=== PATIENT | female | born 1990 | race Caucasian/White ===

== ENCOUNTER 2016-10-14 19:10 | Emergency (ER) | payer SELFPAY ==
[~2016-10-14] VITALS: Ht 175.3 cm; Wt 86.0 kg
[~2016-10-14 19:10] MED LIST: LAMO150T32 PO; LAMO25TA PO; LEVOIUD PV; LMC25 PO
[2016-10-14 19:12] VITALS: TEMP 37.2; Ht 175.3 cm; Wt 86.0 kg
[2016-10-14] MEDS ORDERED: SODIUM CHLORIDE 0.9% 1000ML 1,000 ML IV STA (19:28)
[2016-10-14 20:18] LABS: BASO % 0.2 %; BASO ABS # 0.01 K/uL (0-0.2); COMPLETE YES; EOS % 0.2 %; HEMATOCRIT 43.4 % (37-47); IG% 0.2 %; LYMPH % 18.3 %; LYMPH ABS # 0.94 K/uL (1.2-3.4); MEAN CELL VOLUME 91.8 fL (80-100); MEAN CORPUSCULAR HEMOGLOBIN 31.9 pg (25-34); MEAN CORPUSCULAR HGB CONC 34.8 g/dl (32-36); MEAN PLATELET VOLUME 11.2 fL (7.4-10.4); MONO % 11.5 %; NEUT % 69.6 %; PLATELET COUNT 195 K/uL (130-400); RED BLOOD COUNT 4.73 M/uL (4.2-5.4); WHITE BLOOD COUNT 5.13 K/uL (4.8-10.8)
[2016-10-14 20:40] LABS: BUN/CREATININE RATIO 9.9 (10-20); CALCIUM 8.7 mg/dl (8.5-10.1); CREATININE 0.87 mg/dl (0.60-1.20); POTASSIUM 3.8 mmol/L (3.5-5.1)
--- NOTE | 2016-10-14 20:44 | DIAGNOSTIC IMAGING REPORT ---
CHEST 2 VIEWS ROUTINE CLINICAL HISTORY: Cough. Evaluate for pneumonia. COMPARISON STUDY: Chest radiograph January 24, 2015. FINDINGS: Lung volumes are normal. Lungs are clear. There is no pneumothorax or pleural effusion. Cardiac size is normal. Mediastinal contours are normal. IMPRESSION: No acute cardiopulmonary findings. Electronically signed by: Goran Ji M.D. 10/14/2016 8:43 PM Dictated Date/Time: 10/14/2016 8:42 PM
[2016-10-14 21:19] VITALS: BP 120/86; PULSE 69; O2SAT 99
--- NOTE | 2016-10-14 23:01 | EMERGENCY ROOM VISIT NOTE ---
History Report prepared by Taylaibmadi: Rosie Go Under the Supervision of: Dr. Jorge Palomo M.D. First contact with patient: 19:22 Chief Complaint: COUGH Stated Complaint: COUGH,SORE THROAT,TROUBLE BREATHING,SNEEZING History of Present Illness The patient is a 26 year old female who presents to the Emergency Room with complaints of a worsening cough for the past 4 to 5 days. She reports her throat has also been sore and every time she coughs, she experiences soreness in her chest and becomes "lightheaded". She also complains of the chills. She is not sure if she's been running a fever. The patient admits to having a coworker who was recently diagnosed with strep throat. She denies any chance of being and states her last menstrual period was on time and normal. She admits to some nausea yesterday, but denies any actual vomiting. She has tried taking DayQuil, but reports it has not provided much relief. The patient denies any past history of mononucleosis. She admits to history of epilepsy but denies any recent seizures. Source of History: patient Onset: 4 to 5 days [employer] RE[employer] Position: chest Quality: other (Cold symptoms) Timing: worsening Modifying Factors (Relieving): other (DayQuil) Associated Symptoms: + chills, + cough, + nausea, + sorethroat, No SOB, No fevers, No vomiting Review of Systems See HPI for pertinent positives & negatives. A total of 10 systems reviewed and were otherwise negative. Past Medical & Surgical Medical Problems: (1) Epilepsy Social History Smoking Status: Never Smoker Drug Use: none Marital Status: in relationship Housing Status: lives with family Occupation Status: employed Current/Historical Medications Scheduled Lamotrigine (Lamictal), 150 MG PO AMHS Lamotrigine (Lamictal), 25 MG PO QPM Levonorgestrel (Iud) (Mirena), 1 PV UD Allergies Coded Allergies: Diphenhydramine (Verified Allergy, Severe, rash with trouble breathing, 06/20) Physical Exam Vital Signs Date Time Temp Pulse Resp B/P Pulse Ox O2 Delivery O2 Flow Rate FiO2 10/14/16 21:19 69 18 120/86 99 10/14/16 19:12 37.2 82 18 156/97 96 Room Air Physical Exam Constitutional: Vital signs reviewed. Eyes: Pupils are equal round reactive to light. Conjunctiva are noninjected. ENT: Mild erythema in the oropharynx, no exudate. Mucous membranes are moist. Neck supple without meningeal signs. Respiratory: Clear to auscultation bilaterally. Breath sounds are equal bilaterally. Cardiovascular: Regular rate and rhythm. No rubs or gallops. GI: Soft, nondistended and nontender. Bowel sounds are present. No organomegaly. Musculoskeletal: No peripheral edema. No lower extremity tenderness. Integumentary: No cyanosis. Neurological: The patient is awake and alert. No focal deficits. Psychiatric: Normal affect. Medical Decision & Procedures ER Provider Diagnostic Interpretation: This X-Ray was reviewed and interpreted by myself and the radiologist. CHEST 2 VIEWS ROUTINE CLINICAL HISTORY: Cough. Evaluate for pneumonia. COMPARISON STUDY: Chest radiograph January 24, 2015. FINDINGS: Lung volumes are normal. Lungs are clear. There is no pneumothorax or pleural effusion. Cardiac size is normal. Mediastinal contours are normal. IMPRESSION: No acute cardiopulmonary findings. Electronically signed by: Goran Ji M.D. 10/14/2016 8:43 PM Laboratory Results 10/14/16 20:06 Red Blood Count 4.73, Mean Corpuscular Volume 91.8, Mean Corpuscular Hemoglobin 31.9, Mean Corpuscular Hemoglobin Concent 34.8, Mean Platelet Volume 11.2, Neutrophils (%) (Auto) 69.6, Lymphocytes (%) (Auto) 18.3, Monocytes (%) (Auto) 11.5, Eosinophils (%) (Auto) 0.2, Basophils (%) (Auto) 0.2, Neutrophils # (Auto ) 3.57, Lymphocytes # (Auto) 0.94, Monocytes # (Auto) 0.59, Eosinophils # (Auto ) 0.01, Basophils # (Auto) 0.01 10/14/16 20:06 Test 10/14/16 00:00 10/14/16 20:06 Influenza Type A Antigen POS for Influ A (NEG) Influenza Type B Antigen Neg for Influ B (NEG) White Blood Count 5.13 K/uL (4.8-10.8) Red Blood Count 4.73 M/uL (4.2-5.4) Hemoglobin 15.1 g/dL (12.0-16.0) Hematocrit 43.4 % (37-47) Mean Corpuscular Volume 91.8 fL (80-100) Mean Corpuscular Hemoglobin 31.9 pg (25-34) Mean Corpuscular Hemoglobin Concent 34.8 g/dl (32-36) Platelet Count 195 K/uL (130-400) Mean Platelet Volume 11.2 fL (7.4-10.4) Neutrophils (%) (Auto) 69.6 % Lymphocytes (%) (Auto) 18.3 % Monocytes (%) (Auto) 11.5 % Eosinophils (%) (Auto) 0.2 % Basophils (%) (Auto) 0.2 % Neutrophils # (Auto) 3.57 K/uL (1.4-6.5) Lymphocytes # (Auto) 0.94 K/uL (1.2-3.4) Monocytes # (Auto) 0.59 K/uL (0.11-0.59) Eosinophils # (Auto) 0.01 K/uL (0-0.5) Basophils # (Auto) 0.01 K/uL (0-0.2) RDW Standard Deviation 42.6 fL (36.4-46.3) RDW Coefficient of Variation 12.7 % (11.5-14.5) Immature Granulocyte % (Auto) 0.2 % Immature Granulocyte # (Auto) 0.01 K/uL (0.00-0.02) Anion Gap 12.0 mmol/L (3-11) Est Creatinine Clear Calc Drug Dose 114.7 ml/min Estimated GFR () 106.6 Estimated GFR (Non- 91.9 BUN/Creatinine Ratio 9.9 (10-20) Calcium Level 8.7 mg/dl (8.5-10.1) Total Bilirubin 0.4 mg/dl (0.2-1) Direct Bilirubin 0.2 mg/dl (0-0.2) Aspartate Amino Transf (AST/SGOT) 52 U/L (15-37) Alanine Aminotransferase (ALT/SGPT) 70 U/L (12-78) Alkaline Phosphatase 57 U/L (45-117) Total Protein 7.2 gm/dl (6.4-8.2) Albumin 4.1 gm/dl (3.4-5.0) Monoscreen NEG (NEG) Laboratory results as reviewed by me. Medications Administered Medications (Trade) Dose Ordered Sig/Tasha Route Start Time Stop Time Status Last Admin Dose Admin Sodium Chloride (Nss 1000ml) 1,000 ml @ 999 mls/hr Q1H1M STAT IV 10/14/16 19:28 10/14/16 20:28 DC 10/14/16 20:09 999 MLS/HR ED Course 1922: The patient was evaluated in room C11. A complete history and physical exam was performed. 1927: NSS 1000 ml @ 999 mls/hr IV. 2049: I reevaluated the patient. I discussed her test results. We are waiting on her flu swab to come back. 2106: Nursing informed me the patient is positive for flu. 2108: I reevaluated the patient. I discussed her test results and discharge instructions and she verbalized complete understanding and agreement. Medical Decision This is a 26-year-old female presents with a 4 to five-day history of illness. Differential diagnosis includes influenza, infectious mononucleosis, strep pharyngitis, viral syndrome, pneumonia, bronchitis. I did perform a limited focused review of portions of the patient's old chart on the electronic medical record. The patient has had no recent pertinent visits to this hospital. I did evaluate the patient as noted above. The patient is presenting with a 4- 5 day history of flulike illness. IV access was established. She was given a liter normal saline IV. She declined testing for . I did order and personally review the patient's chest x-ray as described above. There is no evidence of pneumonia. I did order and review the patient's blood work as noted in the electronic medical record. Her white blood cell count is not elevated. Her Monospot is negative. Rapid testing for influenza was positive for influenza A. I did stress the test results with the patient. She has had symptoms for 2 long to benefit from Tamiflu. She was therefore advised follow with her doctor and given a work note. She was discharged. Impression Primary Impression: Influenza A Scribe Attestation The scribe's documentation has been prepared under my direct and personally reviewed by me in its entirety. I confirm that the note above accurately reflects all work, treatment, procedures, and medical decision making performed by me. Departure Information Dispostion Home / Self-Care Patient Instructions ED Flu, My [facility] Additional Instructions You have been examined and treated today on an emergency basis only. This is not a substitute for, or an effort to provide, complete comprehensive medical care. It is impossible to recognize and treat all injuries or illnesses in a single emergency department visit. It is therefore important that you follow up closely with your physician. Call as soon as possible for an appointment. Return for worsening symptoms or if you develop vomiting or any other concerning symptoms.
== END 2016-10-14 21:21 | disposition home or self-care (01) ==
LOC: C.EDB 19:11 → C.EDC 21:21
DX: J11.1 Influenza due to unidentified influenza virus with other respiratory manifestations (principal); G40.909 Epilepsy, unspecified, not intractable, without status epilepticus; Z79.899 Other long term (current) drug therapy

== ENCOUNTER 2017-06-18 16:20 | Emergency (ER) | payer SELFPAY ==
[~2017-06-18] VITALS: Ht 175.3 cm; Wt 90.3 kg
[~2017-06-18 16:20] MED LIST changes: -LMC25 PO
[2017-06-18 16:49] VITALS: TEMP 36.7; Ht 175.3 cm; Wt 90.3 kg
[2017-06-18] MEDS ORDERED: LAMO25TA PO (17:26)
[2017-06-18] MEDS ORDERED: KETOROLAC TROMETHAMINE 60 MG/2 ML VIAL IM STA (17:32)
--- NOTE | 2017-06-18 18:19 | DIAGNOSTIC IMAGING REPORT ---
SACRUM COCCYX MIN 2 VIEWS CLINICAL HISTORY: Contusion right sacrum from trauma. COMPARISON STUDY: Lumbar spine radiographs January 28, 2015. FINDINGS: No fracture of the sacrum or coccyx is identified by radiography. Sacroiliac joints are intact. Intrauterine device is noted. 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 IMPRESSION: No fracture of the sacrum or coccyx identified radiography. Electronically signed by: Goran Ji M.D. 06/18/2017 6:18 PM Dictated Date/Time: 06/18/2017 6:16 PM
[2017-06-18 18:41] VITALS: BP 113/70; PULSE 69; O2SAT 100
--- NOTE | 2017-06-18 18:57 | EMERGENCY ROOM VISIT NOTE ---
ED Visit Note First contact with patient: 17:22 CHIEF COMPLAINT: Low back pain HISTORY OF PRESENT ILLNESS: This 26-year-old female patient presents to the emergency department, ambulatory, complaining of pain in the low back which began 2 days ago. The patient states she was attempting to grab a mop and broom out of a closet, when the very heavy door hit her backside. The patient states when she was an , she had a spinal tap performed and continues to have occasional discomfort on the lower right side where this procedure was done. The patient states today she noticed some bruising, and is having increased pain with lying flat or on her left side. She describes the pain as shooting and pinching, but denies any numbness or tingling. She states the pain does occasionally radiate down the right leg. She denies any abnormal bowel or bladder symptoms. She denies any previous back pain or injury. The patient has been taking 400 mg ibuprofen every 4-6 hours. She states the pain is worse with lifting and moving. She rates the pain 7/10. No nausea or vomiting or abdominal pain. No chest pain or shortness of breath. No dysuria or increased urinary frequency. REVIEW OF SYSTEMS: A review of systems was performed with positives and pertinent negatives listed in the history of present illness. All other systems were reviewed and are negative. ALLERGIES: Benadryl MEDICATIONS: Lamictal, Mirena IUD PMH: Seizures SOCIAL HISTORY: The patient lives locally with family. She denies drug, alcohol , tobacco use. PHYSICAL EXAM: VITALS: Vitals are noted on the nurse's note and reviewed by myself. Vital signs stable. GENERAL: This is a 26-year-old female, in no acute distress, nondiaphoretic, well-developed well-nourished. SKIN: The skin was without rashes, erythema, edema, or bruising. Capillary refill less than 2 seconds. NECK: Supple without nuchal rigidity. No cervical spine tenderness. No paraspinous muscle tenderness. HEART: Regular rate and rhythm without murmurs gallops or rubs. LUNGS: Clear to auscultation bilaterally without wheezes, rales or rhonchi. ABDOMEN: Positive bowel sounds x 4. Normal tympanic percussion. Soft, nontender, without masses or organomegaly. Chang sign negative. MUSCULOSKELETAL: No muscle atrophy, erythema, or edema noted of the back. There is a very small, approximately 0.5 cm bruise noted on the right lower back , overlying the sacrum. There is discomfort associated with palpation over this contusion. There is no tenderness over the lumbar spinous processes. There is mild tenderness over the paraspinous muscles on the right. There is no tenderness over the thoracic spine or paraspinous muscles. There are no muscle spasms present. The patient is slow to move around with maximum tenderness with changing positions. Negative straight leg raise test. NEURO: Patient was alert and oriented to person place and time. Normal sensation to light and sharp touch. Deep tendon reflexes 2+ in the lower extremities. Dorsalis pedis pulse 2+ bilaterally. Strength 5/5 and equal in the bilateral lower extremities. RADIOLOGY: Sacrum X-Ray: SACRUM COCCYX MIN 2 VIEWS CLINICAL HISTORY: Contusion right sacrum from trauma. COMPARISON STUDY: Lumbar spine radiographs January 28, 2015. FINDINGS: No fracture of the sacrum or coccyx is identified by radiography. Sacroiliac joints are intact. Intrauterine device is noted. 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 IMPRESSION: No fracture of the sacrum or coccyx identified radiography. Electronically signed by: Goran Ji M.D. 06/18/2017 6:18 PM Dictated Date/Time: 06/18/2017 6:16 PM EMERGENCY DEPARTMENT COURSE: Patient was seen and evaluated as above. I discussed with her that I suspect a contusion as the cause of her symptoms. The patient states she feels uncomfortable without having any imaging performed due to her previous spinal tap which was performed as an . The patient states she is in a lot of pain, and does not know what to do about the pain if there is nothing wrong associated with the spinal tap. A sacrum x-ray was ordered and performed at the patient's request. This did not show any significant bony abnormalities. This was reviewed by myself and the radiologist. The patient was given 60 mg Toradol IM. Her port mild improvement in her symptoms. The patient requested a work note due to her severe discomfort. Discharge instructions were reviewed and pain management discussed. The patient was discharged home in good condition. I attest that I have personally reviewed the patient's current medication list. Patient was found to have normal blood pressure on screening and does not require follow-up. DIFFERENTIAL DIAGNOSIS: Contusion, fracture, sprain, strain, degenerative disc disease, arthritis, disc protrusion, disc herniation, hemorrhage, malignancy, and others DIAGNOSIS: Lumbar contusion Current/Historical Medications Scheduled Lamotrigine (Lamictal), 150 MG PO AMHS Lamotrigine (Lamictal), 25 MG PO QAM Lamotrigine (Lamictal), 50 MG PO QPM Levonorgestrel (Iud) (Mirena), 1 PV UD Allergies Coded Allergies: Diphenhydramine (Verified Allergy, Severe, rash with trouble breathing, 06/20) Vital Signs Date Time Temp Pulse Resp B/P (MAP) Pulse Ox O2 Delivery O2 Flow Rate FiO2 06/18/17 18:41 69 20 113/70 100 Room Air 06/18/17 16:49 36.7 74 20 135/82 100 Room Air Medications Administered Medications (Trade) Dose Ordered Sig/Tasha Route Start Time Stop Time Status Last Admin Dose Admin Ketorolac Tromethamine (Toradol Inj) 60 mg NOW STAT IM 06/18/17 17:32 06/18/17 17:33 DC 06/18/17 17:37 60 MG Departure Information Impression Primary Impression: Back contusion Dispostion Home / Self-Care Condition GOOD Referrals No Doctor, Assigned (PCP) Patient Instructions ED Contusion Back, My [facility] Additional Instructions You have been treated in the Emergency Department for Back Pain. X-ray was negative and I suspect a contusion. For pain control, you can use the following [id number] medicines (if >12 yo): Ibuprofen(Motrin, Advil) may be used for fever or pain. Use 600mg every six hours as needed. Take with food. Avoid using more than 2400mg in a 24 hour period. Do not use 2400mg per day for more than three consecutive days without physician direction. Prolonged inappropriate use can lead to stomach upset or ulcers. (AND/OR) Acetaminophen(Tylenol) may be used for fever or pain. Use 1000mg every six hours as needed. Avoid using more than 3000mg in a 24 hour period. If this is an acute injury, ice can be applied to the area of pain for the first 3 days to help decrease pain and inflammation. After the first 3 days, a heating pad can be used over the area for continued soothing relief. You should schedule a follow-up appointment in 2-3 days with your Primary Care Provider for further evaluation and treatment of your back pain. Return to the Emergency Department if your current symptoms worsen despite treatment course outlined above, or if you develop any of the following symptoms : intractable pain despite aforementioned treatment course, loss of control of your bowel or bladder, numbness or tingling in your groin, or development of a fever. Work Instructions Return To Work: 1 day Problem Qualifiers Primary Impression: Back contusion Encounter type: initial encounter Laterality: right Qualified Codes: S20.221A - Contusion of right back wall of thorax, initial encounter
== END 2017-06-18 19:06 | disposition home or self-care (01) ==
LOC: C.EDB 16:20 → C.EDD 19:06
DX: S30.0XXA Contusion of lower back and pelvis, initial encounter (principal); W22.8XXA Striking against or struck by other objects, initial encounter; G40.909 Epilepsy, unspecified, not intractable, without status epilepticus; Z79.899 Other long term (current) drug therapy

== ENCOUNTER 2018-04-27 00:39 | Emergency (ER) | payer SELFPAY ==
[~2018-04-27] VITALS: Ht 175.3 cm; Wt 107.0 kg
[~2018-04-27 00:39] MED LIST changes: +LAMO150T PO; -LAMO150T32 PO; +LEVO1IUD2 PV; -LEVOIUD PV
[2018-04-27 00:50] VITALS: Ht 175.3 cm; Wt 107.0 kg
[2018-04-27] MEDS ORDERED: CLOTRIMAZOLE 1% CR 15 GM TUBE EXT ONE (01:15)
[2018-04-27 01:28] VITALS: BP 145/92; PULSE 75; TEMP 37.1; O2SAT 99
--- NOTE | 2018-04-27 07:08 | EMERGENCY ROOM VISIT NOTE ---
History First contact with patient: 00:57 Chief Complaint: SKIN PROBLEM Stated Complaint: INFECTION ON UPPER LEGS(BOTH) History of Present Illness The patient is a 27 year old female who presents to the Emergency Room with complaints of irritation and rash to her thighs that has been worsening over the past 2 weeks. The patient works as a nurse's aide and walking seems to worsen the symptoms. She is not sure if she has an infection, but the rash appears to be worsening over the past few days, causing her presentation. She has not had fever or chills. She does not have other complaints. The pain is primarily a burning, nonradiating, 6/10. Review of Systems More than 10 systems were reviewed and otherwise negative with the exception of history of present illness. Past Medical/Surgical History Medical Problems: (1) Epilepsy Family History No pertinent family history Social History Smoking Status: Never Smoker Drug Use: none Marital Status: in relationship Housing Status: lives with family Occupation Status: employed Current/Historical Medications Scheduled Lamotrigine (Lamictal), 150 MG PO AMHS Lamotrigine (Lamictal), 25 MG PO QAM Lamotrigine (Lamictal), 50 MG PO QPM Levonorgestrel (Iud) (Mirena), 1 PV UD Physical Exam Vital Signs Date Time Temp Pulse Resp B/P (MAP) Pulse Ox O2 Delivery O2 Flow Rate FiO2 04/27/18 01:28 37.1 75 18 145/92 99 04/27/18 00:50 37.1 75 18 145/92 99 Room Air Physical Exam VITALS: Vitals are noted on the nurse's note and reviewed by myself. Vital signs stable. GENERAL: Well-developed, well-nourished, white female, who is in no acute distress and resting comfortably. Patient is cooperative with the examination. HEART: Regular rate and rhythm without murmurs gallops or rubs. LUNGS: Clear to auscultation bilaterally without wheezes, rales or rhonchi. No retractions or accessory muscle use. NEURO: Patient was alert and oriented to person place and time. CN II through XII grossly intact. SKIN: The skin was with a rash of the bilateral inguinal space. This appears with a reddened plaque-like base with white overlying tissue. This appears to be most consistent with a fungal/yeast infection Medical Decision & Procedures Medications Administered Medications (Trade) Dose Ordered Sig/Tasha Route Start Time Stop Time Status Last Admin Dose Admin Clotrimazole (Lotrimin 1% Crm) 1 appln NOW ONCE EXT 04/27/18 01:15 04/27/18 01:16 DC 04/27/18 01:26 1 APPLN ED Course Physical exam and history were performed. Nursing notes, EMR, and Medication List were personally reviewed. Patient appears to have rash in her bilateral inguinal space. This appears to be most consistent with a yeast or fungal infection. She was given Lotrimin ointment. The patient is to continue using this at home. She may also wish to use a topical protective cream like Desitin. I will give her a note for work. Other skin care was discussed and she was otherwise invited back to the ER with any new, worsening, or concerning symptoms. The chart was completed utilizing [employer] Speech Voice Recognition Software. Grammatical errors, random word insertions, pronoun errors, and incomplete sentences are an occasional consequence of this system due to software limitations, ambient noise, and hardware issues. Any formal questions or concerns about the content, text, or information contained within the body of this dictation should be directly addressed to the provider for clarification. . Medical Decision Differential diagnosis: Etiologies such as contact dermatitis, viral exanthem, urticaria, allergic reaction, Benson-Rigo syndrome, toxic epidermal necrolysis, erythema multiforme, cellulitis, scabies, HSV, varicella, zoster, eczema, staph scalded skin syndrome, fungal infection, as well as others were entertained. Impression Primary Impression: Rash and nonspecific skin eruption Departure Information Dispostion Home / Self-Care Condition GOOD Forms HOME CARE DOCUMENTATION FORM, Work Instructions, Additional Instructions: Patient was seen and evaluated today in the emergency department fo medical care. Return to work on 04/30/2018. Please excuse. IMPORTANT VISIT INFORMATION Patient Instructions My [facility] Additional Instructions You were seen and evaluated today on an emergency basis only. This is not a substitute for, or an effort to provide, complete comprehensive medical care. It is not possible to recognize and treat all injuries or illnesses in a single emergency department visit. For this reason it is recommended that you followup with your primary care physician next week for ongoing care and evaluation. Apply Lotrimin (clotrimazole) ointment 3-4 times daily to the affected area. Afterwards apply Desitin (or similar product) overtop of the Lotrimin. Both of these medications are available [id number]. Keep the area uncovered as much as possible. You are welcome to return to the emergency department anytime with new, worsening, or concerning symptoms. Work Instructions Additional Work Instructions: Patient was seen and evaluated today in the emergency department for medical care. Return to work on 04/30/2018. Please excuse.
== END 2018-04-27 01:30 | disposition home or self-care (01) ==
LOC: C.EDB 00:40 → C.EDC 01:30
DX: R21 Rash and other nonspecific skin eruption (principal); G40.909 Epilepsy, unspecified, not intractable, without status epilepticus; Z79.899 Other long term (current) drug therapy

== ENCOUNTER 2024-03-18 17:27 | Observation (INO) ==
--- NOTE | 2024-03-18 17:38 | ED Triage Note ---
Date of Service March 18, 2024 Provider in Triage Author: Joy Nick History of Present Illness This patient was briefly evaluated while in triage. An abbreviated physical exam was performed. This patient is a 33-year-old Female who presents to the ED for evaluation of dental swelling. Pt states seen here yesterday for similar symptoms. Since yesterday, pain and swelling is worsening. Physical Exam Initial orders for labs and / or imaging were placed and patient was placed in the waiting area until a bed is available. Please see further documentation for the full ED course.
--- NOTE | 2024-03-18 17:46 | Emergency Department Note ---
Impression & Plan Facial cellulitis, Dental infection ED Provider Note CHIEF COMPLAINT: Dental infection HISTORY OF PRESENTING ILLNESS: This 33-year-old female patient presents to the emergency department with her for evaluation of swelling and pain to the right lower teeth and face. The patient was seen in the emergency department yesterday and diagnosed with a dental infection. She was started on Augmentin. However, the swelling to her face has gotten a lot worse despite the Augmentin. No fevers. No discharge from her mouth. She did not get a hold of a dentist yet because she slept most of the day from the pain. She is still able to open the mouth, but with increased pain. No trouble breathing or swallowing. She has a Mirena so she does not get her periods. She does not feel that she could be . REVIEW OF SYSTEMS: See HPI for pertinent positives and pertinent negatives. ALLERGIES: Benadryl MEDICATIONS: Lamictal, Mirena PAST MEDICAL HISTORY: Epilepsy, Migraines PHYSICAL EXAM: Vital Signs: Vitals are noted on the nurse's note and reviewed by myself. GENERAL: Non toxic in appearance and in no acute distress. SKIN: The patient has significant edema to the right side of the face mainly around the mandible and maxillary area. No erythema or warmth. There is induration, but no fluctuance. Capillary reflex less than 2 seconds. HEAD: Normocephalic, atraumatic. EARS: Bilateral external auditory canals clear without tragus tenderness. Bilateral tympanic membranes pearly cueto without erythema or effusion. No mastoid tenderness bilaterally. EYES: Pupils equal round and reactive to light and accommodation. Conjunctivae without injection, sclerae without icterus. Extraocular movements intact. NOSE: Patent, turbinates inflamed with no discharge. No sinus tenderness. MOUTH: The patient has multiple dental caries present with significant edema and inflammation of the gingiva surrounding the right lower molars. However, no obvious drainable abscess at this time. No discharge from the mouth. Mucous membranes moist. Airway patent, uvula midline. Pharynx is not erythematous and not edematous without exudate. Pharynx without postnasal drip. No evidence for peritonsillar abscess. NECK: Supple without nuchal rigidity. Positive right-sided anterior and posterior cervical lymphadenopathy. No evidence for Lauro angina at this time. HEART: Regular rate and rhythm without murmurs gallops or rubs. LUNGS: Clear to auscultation bilaterally without wheezes, rales or rhonchi. No accessory muscle use or retractions. ABDOMEN: Positive bowel sounds x 4. Normal tympanic percussion. Soft, nontender, without masses or organomegaly. NEURO: Patient was alert and oriented. DIFFERENTIAL DIAGNOSIS: Differential diagnosis includes dental caries, periapical abscess, facial cellulitis, facial abscess, Lauro's angina, pharyngitis, referred pain, among others. ED COURSE AND MEDICAL DECISION MAKING: MEDICATIONS GIVEN: 1 L normal saline solution bolus. Toradol 15 mg IV. Unasyn 3 g IV. INTERPRETATION OF LABS: I interpreted the labs with full lab results as below in the lab section of this note. White blood cell count elevated 11.76. Hemoglobin normal at 13.3. Platelet count normal at 289. Glucose 133. Sodium and potassium hemolyzed and were not resulted. The remainder of the BMP without acute abnormalities. INTERPRETATION OF IMAGING: Imaging studies were interpreted by myself and read by radiology as per the imaging section of this note. CT scan of the soft tissue neck with IV contrast showed prominent right mandibular soft tissue swelling and fat stranding, but no discrete abscess identified. There is a small amount of fluid along the right platysma. Dental disease is present. EXTERNAL RECORDS REVIEWED: I reviewed the ER record from yesterday as summarized above. CONSULTATIONS: Dr. Mcclain of maxillofacial surgery MDM SUMMARY: I examined the patient. The patient was seen in the ER yesterday for a dental infection. She was given a prescription for Augmentin and has been taking it as prescribed. However, today she noticed increased swelling to the right side of her face. She has not had any fevers or discharge from her mouth. An IV lock was placed and labs were drawn. White blood cell count mildly elevated at 11.76. CT scan of the soft tissue neck with IV contrast showed prominent right mandibular soft tissue swelling and fat stranding, but no discrete abscess identified. There is a small amount of fluid along the right platysma. Dental disease is present. The patient was given 1 L normal saline solution bolus, Toradol 15 mg IV, and Unasyn 3 g IV. The patient has been taking her Augmentin as prescribed yesterday with increased swelling to the right side of the face. I spoke with Dr. Mcclain of maxillofacial surgery who reviewed the patient's CT scan images himself. Dr. Mcclain stated that based on the images, he could not proceed with treatment in the office and the patient would likely need surgical intervention in the OR/under anesthesia after the infection started to improve. Dr. Mcclain recommended the patient be admitted for IV antibiotics to help decrease the swelling and infection prior to the likely surgical intervention. I made the patient n.p.o. and discussed these recommendations with the patient. The patient was agreeable to admission. I spoke with the on-call hospitalist who agreed to admit the patient for further evaluation and treatment with Dr. Mcclain on consult. Please refer to their dictations for further details. The patient's care was transferred in stable condition. DIAGNOSIS: Dental disease most prominent in the right first mandibular molar and right first maxillary molar Right-sided facial cellulitis secondary to the dental infection Past Med/Surg History Problem List (Updated 03/17/24 @ 19:15 by GEORGE Keen) Dental abscess (Acute) Chronic low back pain Insomnia Annual physical exam Epilepsy Medical History Migraines Back pain Surgical History History of loop electrosurgical excision procedure (LEEP) Uncertain Timing H/O wisdom tooth extraction Family History Grandfather (Maternal) Myocardial infarction Mother Hypertension Daughter Diabetes Sister Diabetes Denies family history of Ovarian cancer Prostate cancer Breast cancer Colorectal cancer Social History Smoking Status: Never smoker Second Hand Exposure: No; Do You Dip or Chew Tobacco: No; Hx Alcohol Use: Yes Alcohol type: wine Alcohol Intake Frequency: Monthly or Less Hx Substance Use: No Preferred Language: Estonian Communication Ability: Effective Visual Impairment: No Limitations Hearing Ability: Normal marital status: Current Living Situation: Spouse current occupational status: employed 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 Children do You have: 2 Feels Safe at Home: Yes Childhood Exposure to Second-Hand Smoke: No caffeine: Yes Dental Care, Regularly: Yes Physical Activity Frequency: 3-4 Times per Week Seatbelt Use: always Sunscreen Use: Yes Allergies Allergies Allergy/AdvReac Type Severity Reaction Status Date / Time diphenhydramine Allergy Severe rash with Verified 03/18/24 20:41 trouble breathing Home Meds Home Medications Medication Instructions Recorded Confirmed levonorgestrel 21 mcg/24 hr (up to 20 mcg intrauterine DAILY 07/23/19 03/18/24 8 years) 52 mg intrauterine device (Mirena) buprenorphine 8 mg-naloxone 2 mg 2 tab sublingual DAILY 06/26/20 03/18/24 sublingual tablet doxepin 50 mg capsule 50 mg PO HS 03/18/24 03/18/24 gabapentin 400 mg capsule 400 mg PO HS 03/18/24 03/18/24 ibuprofen 200 mg tablet 200 mg PO Q6H PRN pain/fever 03/18/24 03/18/24 lamotrigine 150 mg tablet See Rx Instructions .Route .COMPLEX 03/18/24 03/18/24 (Lamictal) lamotrigine 25 mg tablet See Rx Instructions .Route .COMPLEX 03/18/24 03/18/24 Previous Rx's Medication Instructions Recorded amoxicillin 875 mg-potassium 1 tab PO BID 7 days #14 tabs 03/17/24 clavulanate 125 mg tablet Results & Data (ED) Vital Signs Vital Signs - 24 hr 03/18/24 17:36 03/18/24 19:23 03/18/24 20:05 Temperature 36.6 C Temperature Source Temporal Artery Scan Pulse Rate 85 Pulse Rate [Finger] 72 75 Respiratory Rate 18 18 18 Respiratory Effort / Characteristics Non-Labored Spontaneous Non-Labored Spontaneous Non-Labored Spontaneous Respiratory Depth Normal Normal Normal Respiratory Pattern Regular Blood Pressure 139/79 Blood Pressure [Right Arm] 121/75 108/76 Blood Pressure Mean 99 Blood Pressure Mean [Right Arm] 90 86 Pulse Oximetry 92 95 97 Oxygen Delivery Method Room Air Room Air Room Air Sepsis Recent Fever Within 48 Hours No Sepsis New/Unexplained Change in Mental Status N/A Sepsis Action Taken by Nursing No Action Required Laboratory Data 03/18/24 18:15 03/18/24 18:15 Lab Results 03/18/24 Range/Units 18:15 WBC 11.76 H (4.8-10.8) K/ul RBC 4.29 (4.20-5.40) M/uL Hgb 13.3 (12.0-16.0) g/dl Hct 40.5 (37.0-47.0) % MCV 94.4 (80.0-100.0) fL MCH 31.0 (25.0-34.0) pg MCHC 32.8 (32.0-36.0) g/dL RDW Std Deviation 45.0 (36.4-46.3) fL RDW Coeff of Sherman 13.0 (11.5-14.5) % Plt Count 289 (130-400) K/uL MPV 10.9 (9.4-12.4) fL Immature Gran % (Auto) 0.3 % Neut % (Auto) 75.5 % Lymph % (Auto) 17.4 % [place] % (Auto) 6.0 % Eos % (Auto) 0.5 % Baso % (Auto) 0.3 % Neut # (Auto) 8.87 H (1.40-6.50) K/uL Lymph # (Auto) 2.05 (1.20-3.40) K/uL [place] # (Auto) 0.71 H (0.11-0.59) K/uL Eos # (Auto) 0.06 (0.00-0.50) K/uL Baso # (Auto) 0.04 (0.00-0.20) K/uL Immature Gran # (Auto) 0.03 (0.01-0.20) K/uL Sodium TNP Potassium TNP Chloride 104 (98-107) mmol/L Carbon Dioxide 26 (21-32) mmol/L Anion Gap TNP BUN 12 (6-23) mg/dl Creatinine 0.85 (0.6-1.2) mg/dl Est Cr Clr Drug Dosing 126.4 ml/min Est GFR ( Amer) 104.3 ml/min Est GFR (Non-Af Amer) 90.0 ml/min BUN/Creatinine Ratio 14.1 (10-20) Glucose 133 H (70-99(Fasting)) mg/dl Calcium 9.0 (8.6-10.3) mg/dl HCG, Qual Negative (Negative) Administered Medications Lactated Ringer's (Lr) 1,000 mls @ 80 mls/hr IV .[id number] STA Stop: 03/19/24 09:44 Last Admin: 03/18/24 21:49 Dose: 80 mls/hr Documented By: KEH Discontinued Medications Sodium Chloride (Nss) 1,000 mls @ 999 mls/hr IV .[id number] ONE Stop: 03/18/24 18:48 Last Infusion: 03/18/24 19:39 Dose: Infused Documented By: Admin: 03/18/24 18:25 Dose: 999 mls/hr Documented By: DIMITRY Ampicillin Sodium/Sulbactam Sodium 3,000 mg/ Sodium Chloride 100 mls @ 200 mls/hr IV NOW STA Stop: 03/18/24 18:17 Last Infusion: 03/18/24 19:25 Dose: Infused Documented By: Admin: 03/18/24 18:45 Dose: 200 mls/hr Documented By: DIMITRY Acetaminophen (Ofirmev) 1,000 mg in 100 mls @ 400 mls/hr IV NOW STA Stop: 03/18/24 20:31 Last Infusion: 03/18/24 20:53 Dose: Infused Documented By: Admin: 03/18/24 20:23 Dose: 400 mls/hr Documented By: ZOLTAN Ioversol (Optiray 320 100ml) 92 ml IV ONCE ONE Stop: 03/18/24 19:11 Last Admin: 03/18/24 19:10 Dose: 92 ml Documented By: BOUBACAR Ketorolac Tromethamine (Ketorolac Tromethamine 15 Mg/Ml Vial) 15 mg IV NOW STA Stop: 03/18/24 17:49 Last Admin: 03/18/24 18:25 Dose: 15 mg Documented By: DIMITRY Imaging Data Radiologist's Impression: Soft Tissue Neck CT 03/18/24 17:49 Exam(s): CT NECK With Contrast IV Amt: 92 cc opti 320 EXAM: CT Neck With Intravenous Contrast CLINICAL HISTORY: Reason for exam: Right sided dental pain and facial swelling. TECHNIQUE: Axial computed tomography images of the neck with intravenous contrast. CTDI is 20.64 mGy and DLP is 610.59 mGy-cm. Automated exposure control was utilized for the study. A dose lowering technique was utilized adhering to the principles of ALARA. CONTRAST: Patient received 92 cc opti 320 of IV contrast COMPARISON: None FINDINGS: Oropharynx: Unremarkable. No significant tonsillar enlargement. No peritonsillar abscess. Hypopharynx: Unremarkable. Larynx: Unremarkable. Normal epiglottis. Trachea: Unremarkable. Retropharyngeal space: Unremarkable. Submandibular/parotid glands: Unremarkable. Glands are normal in size. Thyroid: Heterogeneous thyroid could be further evaluated with ultrasound if clinically indicated. Bones/joints: No acute fracture. Soft tissues: Prominent right mandibular soft tissue swelling and fat stranding. No discrete abscess identified. Small amount of fluid along the right platysma. Vasculature: No acute findings. Lymph nodes: Enlarged right cervical, submandibular, and submental lymph nodes may be reactive. Dental: Dental disease, most prominently involving the right first mandibular molar and right first maxillary molar. Lung apices: Unremarkable as visualized. IMPRESSION: 1. Prominent right mandibular soft tissue swelling and fat stranding. No discrete abscess identified. Small amount of fluid along the right platysma. 2. Dental disease. Electronically signed by: Diego Zambrano M.D. 03/18/24 19:39 PM Discharge Plan Visit Data Chief Complaint: Dental/Oral Stated Complaint: RT SIDE, ORAL SWELLING ED Provider: Jamarcus Sykes ED Midlevel Provider: Aria Terrell Discharge Problem: Facial cellulitis, Dental infection Patient Disposition: Admitted As Inpatient Condition: Good Forms Stand Alone Forms: [facility] Prescriptions Prescriptions: No Action buprenorphine-naloxone 8-2 mg tablet, sublingual 2 tab sublingual DAILY Mirena 20 mcg/24 hours (5 yrs) 52 mg intrauterine device 20 mcg IU DAILY amoxicillin-pot clavulanate 875-125 mg tablet 1 tab PO BID 7 Days Qty: 14 0RF Rx Instructions: Start Date 03/17/24, pt unsure of day supply. Pharmacy is closed. gabapentin 400 mg capsule 400 mg PO HS lamotrigine 25 mg tablet See Rx Instructions .ROUTE .COMPLEX Rx Instructions: Take 25mg w/ 150mg to equal 175mg by mouth twice daily ibuprofen 200 mg Tablet 200 mg PO Q6H PRN (Reason: pain/fever) lamotrigine [Lamictal] 150 mg tablet See Rx Instructions .ROUTE .COMPLEX Rx Instructions: Take 150mg w/ 25mg to equal 175mg by mouth twice daily doxepin 50 mg capsule 50 mg PO HS Referrals Referrals: Rey Zuluaga DO [Primary Care Provider] -
[2024-03-18] MEDS: SODIUM CHLORIDE 0.9% 1,000 ML IV ONE (18:25)
[2024-03-18] MEDS: KETOROLAC TROMETHAMINE 15 MG/ML VIAL IV STA (18:25)
[2024-03-18 18:35] LABS: Basophils # (auto) 0.04 K/uL (0.00-0.20); Basophils % (auto) 0.3 %; Eosinophils # (auto) 0.06 K/uL (0.00-0.50); Eosinophils % (auto) 0.5 %; Hematocrit (blood only) 40.5 % (37.0-47.0); Hemoglobin 13.3 g/dl (12.0-16.0); Immature Granulocytes # (auto) 0.03 K/uL (0.01-0.20); Immature Granulocytes % (auto) 0.3 %; Lymphocytes # (auto) 2.05 K/uL (1.20-3.40); Lymphocytes % (auto) 17.4 %; Mean Corpuscular Hgb Conc 32.8 g/dL (32.0-36.0); Mean Corpuscular Volume 94.4 fL (80.0-100.0); Mean Platelet Volume 10.9 fL (9.4-12.4); Monocytes # (auto) 0.71 K/uL (0.11-0.59); Neutrophils # (auto) 8.87 K/uL (1.40-6.50); Neutrophils % (auto) 75.5 %; Platelet Count 289 K/uL (130-400); Red Blood Count 4.29 M/uL (4.20-5.40); White Blood Count 11.76 K/ul (4.8-10.8)
[2024-03-18] MEDS: AMPICILLIN/SULBACTAM SOD 3,000 MG in SODIUM CHLOR 0.9% MINI-B 100 ML IV STA (18:45)
[2024-03-18 18:51] LABS: Pregnancy Test, Serum Negative (Negative)
[2024-03-18 18:53] LABS: BUN Creatinine Ratio 14.1 (10-20); Blood Urea Nitrogen 12 mg/dl (6-23); Carbon Dioxide 26 mmol/L (21-32); Chloride 104 mmol/L (98-107); Creatinine Clr Calc Pharmacy 126.4 ml/min; Est GFR (African American) 104.3 ml/min; Glucose 133 mg/dl (70-99(Fasting))
[2024-03-18] MEDS: OPTIRAY 320 100ml IV ONE (19:10)
--- NOTE | 2024-03-18 19:40 | CT Scan Report ---
Exam(s): CT NECK With Contrast IV Amt: 92 cc opti 320 EXAM: CT Neck With Intravenous Contrast CLINICAL HISTORY: Reason for exam: Right sided dental pain and facial swelling. TECHNIQUE: Axial computed tomography images of the neck with intravenous contrast. CTDI is 20.64 mGy and DLP is 610.59 mGy-cm. Automated exposure control was utilized for the study. A dose lowering technique was utilized adhering to the principles of ALARA. CONTRAST: Patient received 92 cc opti 320 of IV contrast COMPARISON: None FINDINGS: Oropharynx: Unremarkable. No significant tonsillar enlargement. No peritonsillar abscess. Hypopharynx: Unremarkable. Larynx: Unremarkable. Normal epiglottis. Trachea: Unremarkable. Retropharyngeal space: Unremarkable. Submandibular/parotid glands: Unremarkable. Glands are normal in size. Thyroid: Heterogeneous thyroid could be further evaluated with ultrasound if clinically indicated. Bones/joints: No acute fracture. Soft tissues: Prominent right mandibular soft tissue swelling and fat stranding. No discrete abscess identified. Small amount of fluid along the right platysma. Vasculature: No acute findings. Lymph nodes: Enlarged right cervical, submandibular, and submental lymph nodes may be reactive. Dental: Dental disease, most prominently involving the right first mandibular molar and right first maxillary molar. Lung apices: Unremarkable as visualized. IMPRESSION: 1. Prominent right mandibular soft tissue swelling and fat stranding. No discrete abscess identified. Small amount of fluid along the right platysma. 2. Dental disease. Electronically signed by: Diego Zambrano M.D. 03/18/24 19:39 PM
[2024-03-18] MEDS: ACETAMINOPHEN 1,000 MG/100 ML VIAL IV STA (20:23)
--- NOTE | 2024-03-18 21:18 | History & Physical Report ---
Date of Service March 18, 2024 Assessment & Plan (1) Dental abscess: (2) Facial cellulitis: (3) Chronic low back pain: (4) Insomnia: (5) Epilepsy: Plan Dental abscess with right facial cellulitis- N.p.o. after midnight Holding oral Augmentin Continue Unasyn 3 g IV every 6 hours begun in the ED Acetaminophen 650 mg by mouth every 6 hours as needed for mild pain or fever Toradol 10 mg IV every 6 hours as needed for moderate pain Zofran 4 mg IV every 6 hours as needed Pantoprazole 40 mg IV daily Consult to oral maxillofacial surgery Dr. Mcclain Seizure disorder/insomnia/migraine- Continue doxepin, gabapentin, lamotrigine Chronic pain- Continue buprenorphine-naloxone History of Present Illness Chief Complaint: The patient reports that she had developed right sided facial pain due to a tooth problem last week, for which she has been taking ibuprofen to help with the pain. She reports waking this morning with her right side of her face swollen down to her neck, and increased pain, and presents to the ED for assessment. She had been seen in the emergency department yesterday, was diagnosed with a dental infection, was started on Augmentin, and has continued to worsen. Primary Care Provider: Rey Zuluaga DO The patient is a 33-year-old female with a past medical history including chronic low back pain, insomnia, and epilepsy. She presents to the emergency department as noted above. CT scan of the soft tissue of the neck showed a prominent right mandibular soft tissue swelling and fat stranding, with no disc rete abscess is identified, and a small amount of fluid along the right platysma. Phone conversation with oral maxillofacial surgery Dr. Mcclain, recommended admission, for possible procedure in the a.m. Allergies Allergy/AdvReac Type Severity Reaction Status Date / Time diphenhydramine Allergy Severe rash with Verified 03/18/24 20:41 trouble breathing Home Medications Medication Instructions Recorded Confirmed Type levonorgestrel 21 mcg/24 hr (up to 20 mcg intrauterine DAILY 07/23/19 03/18/24 History 8 years) 52 mg intrauterine device (Mirena) buprenorphine 8 mg-naloxone 2 mg 2 tab sublingual DAILY 06/26/20 03/18/24 History sublingual tablet amoxicillin 875 mg-potassium 1 tab PO BID 7 days #14 tabs 03/17/24 03/18/24 Rx clavulanate 125 mg tablet doxepin 50 mg capsule 50 mg PO HS 03/18/24 03/18/24 History gabapentin 400 mg capsule 400 mg PO HS 03/18/24 03/18/24 History ibuprofen 200 mg tablet 200 mg PO Q6H PRN pain/fever 03/18/24 03/18/24 History lamotrigine 150 mg tablet See Rx Instructions .Route .COMPLEX 03/18/24 03/18/24 History (Lamictal) lamotrigine 25 mg tablet See Rx Instructions .Route .COMPLEX 03/18/24 03/18/24 History Past Med/Surg History Problem List (Updated 03/18/24 @ 22:30 by Wellington Cooper MD) Facial cellulitis Dental abscess (Acute) Chronic low back pain Insomnia Annual physical exam Epilepsy Medical History Migraines Back pain Surgical History History of loop electrosurgical excision procedure (LEEP) Uncertain Timing H/O wisdom tooth extraction Family History Grandfather (Maternal) Myocardial infarction Mother Hypertension Daughter Diabetes Sister Diabetes Denies family history of Ovarian cancer Prostate cancer Breast cancer Colorectal cancer Social History Smoking Status: Never smoker Second Hand Exposure: No; Do You Dip or Chew Tobacco: No; Hx Alcohol Use: Yes Alcohol type: wine Alcohol Intake Frequency: Monthly or Less Hx Substance Use: No Preferred Language: Upper Sorbian Communication Ability: Effective Visual Impairment: No Limitations Hearing Ability: Normal marital status: Current Living Situation: Spouse current occupational status: employed 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 Feels Safe at Home: Yes Childhood Exposure to Second-Hand Smoke: No caffeine: Yes Dental Care, Regularly: Yes Physical Activity Frequency: 3-4 Times per Week Seatbelt Use: always Sunscreen Use: Yes Review of Systems Review of Systems: The patient denies chest pain, palpitations, shortness of breath, dyspnea on exertion, cough, lower extremity swelling, sore throat, fevers, chills, sweats, fatigue, nausea, vomiting, diarrhea , constipation, abdominal pain, pelvic pain, blood in urine or stool, dysuria, urinary frequency or urgency, lightheadedness, dizziness, headache, abnormal bruising or bleeding, imbalance, focal or generalized weakness, numbness or tingling in arms or legs, generalized arthralgias or myalgias, back pain, or night sweats. The review of systems is otherwise negative other than for that already noted above, and at least 10 systems have been reviewed. Physical Exam Physical Exam: The patient is awake, alert and oriented 3, well developed and well nourished, normocephalic and atraumatic, lying in bed and in no acute distress. HEENT--PERRL, EOMI, mucous membranes and oropharynx erythema and induration right side Neck--swelling from right mandibular area down to right side of neck anteriorly Heart--normal S1 and S2. No murmurs, rubs or gallops. Lungs--clear bilaterally, no respiratory distress, no accessory muscle use. Abdomen--normal bowel sounds and soft. Nontender. Nondistended Extremities--No edema. Dermatologic--normal except as above Neurologic--cranial nerves II through XII grossly intact. Rheumatologic--normal range of motion. Psychiatric--normal affect. Results & Data Results & Data Vital Signs (Past 12 Hours) Vital Signs Temp Pulse Pulse Resp BP BP Pulse Ox 03/18/24 20:05 75 18 108/76 97 03/18/24 19:23 72 18 121/75 95 03/18/24 17:36 36.6 C 85 18 139/79 92 O2 Del Method 03/18/24 20:05 Room Air 03/18/24 19:23 Room Air 03/18/24 17:36 Room Air Laboratory Results Laboratory Results WBC 11.76 K/ul (4.8-10.8) H 03/18/24 18:15 RBC 4.29 M/uL (4.20-5.40) 03/18/24 18:15 Hgb 13.3 g/dl (12.0-16.0) 03/18/24 18:15 Hct 40.5 % (37.0-47.0) 03/18/24 18:15 MCV 94.4 fL (80.0-100.0) 03/18/24 18:15 MCH 31.0 pg (25.0-34.0) 03/18/24 18:15 MCHC 32.8 g/dL (32.0-36.0) 03/18/24 18:15 RDW Std Deviation 45.0 fL (36.4-46.3) 03/18/24 18:15 RDW Coeff of [place] 13.0 % (11.5-14.5) 03/18/24 18:15 Plt Count 289 K/uL (130-400) 03/18/24 18:15 MPV 10.9 fL (9.4-12.4) 03/18/24 18:15 Immature Gran % (Auto) 0.3 % 03/18/24 18:15 Neut % (Auto) 75.5 % 03/18/24 18:15 Lymph % (Auto) 17.4 % 03/18/24 18:15 [place] % (Auto) 6.0 % 03/18/24 18:15 Eos % (Auto) 0.5 % 03/18/24 18:15 Baso % (Auto) 0.3 % 03/18/24 18:15 Neut # (Auto) 8.87 K/uL (1.40-6.50) H 03/18/24 18:15 Lymph # (Auto) 2.05 K/uL (1.20-3.40) 03/18/24 18:15 [place] # (Auto) 0.71 K/uL (0.11-0.59) H 03/18/24 18:15 Eos # (Auto) 0.06 K/uL (0.00-0.50) 03/18/24 18:15 Baso # (Auto) 0.04 K/uL (0.00-0.20) 03/18/24 18:15 Immature Gran # (Auto) 0.03 K/uL (0.01-0.20) 03/18/24 18:15 Sodium TNP 03/18/24 18:15 Potassium TNP 03/18/24 18:15 Chloride 104 mmol/L (98-107) 03/18/24 18:15 Carbon Dioxide 26 mmol/L (21-32) 03/18/24 18:15 Anion Gap TNP 03/18/24 18:15 BUN 12 mg/dl (6-23) 03/18/24 18:15 Creatinine 0.85 mg/dl (0.6-1.2) 03/18/24 18:15 Est Cr Clr Drug Dosing 126.4 ml/min 03/18/24 18:15 Est GFR ( Amer) 104.3 ml/min 03/18/24 18:15 Est GFR (Non-Af Amer) 90.0 ml/min 03/18/24 18:15 BUN/Creatinine Ratio 14.1 (10-20) 03/18/24 18:15 Glucose 133 mg/dl (70-99(Fasting)) H 03/18/24 18:15 Calcium 9.0 mg/dl (8.6-10.3) 03/18/24 18:15 HCG, Qual Negative (Negative) 03/18/24 18:15 Impressions Soft Tissue Neck CT 03/18/24 17:49 Exam(s): CT NECK With Contrast IV Amt: 92 cc opti 320 EXAM: CT Neck With Intravenous Contrast CLINICAL HISTORY: Reason for exam: Right sided dental pain and facial swelling. TECHNIQUE: Axial computed tomography images of the neck with intravenous contrast. CTDI is 20.64 mGy and DLP is 610.59 mGy-cm. Automated exposure control was utilized for the study. A dose lowering technique was utilized adhering to the principles of ALARA. CONTRAST: Patient received 92 cc opti 320 of IV contrast COMPARISON: None FINDINGS: Oropharynx: Unremarkable. No significant tonsillar enlargement. No peritonsillar abscess. Hypopharynx: Unremarkable. Larynx: Unremarkable. Normal epiglottis. Trachea: Unremarkable. Retropharyngeal space: Unremarkable. Submandibular/parotid glands: Unremarkable. Glands are normal in size. Thyroid: Heterogeneous thyroid could be further evaluated with ultrasound if clinically indicated. Bones/joints: No acute fracture. Soft tissues: Prominent right mandibular soft tissue swelling and fat stranding. No discrete abscess identified. Small amount of fluid along the right platysma. Vasculature: No acute findings. Lymph nodes: Enlarged right cervical, submandibular, and submental lymph nodes may be reactive. Dental: Dental disease, most prominently involving the right first mandibular molar and right first maxillary molar. Lung apices: Unremarkable as visualized. IMPRESSION: 1. Prominent right mandibular soft tissue swelling and fat stranding. No discrete abscess identified. Small amount of fluid along the right platysma. 2. Dental disease. Electronically signed by: Diego Zambrano M.D. 03/18/24 19:39 PM Code Status & VTE Plan Code Status Full code VTE Prophylaxis Plan VTE Prophylaxis will be ordered: Yes PG Care Time/CCT Total # of Minutes Spent Total Time Spent with Patient: Total time spent is greater than 50% in coordination of care (as documented) at patient's floor/unit and/or counseling patient: Coding Level of Care Code 42629 INT INP/OBS CARE 2/55MIN Diagnoses Dental abscess K04.7 Facial cellulitis L03.211 Chronic low back pain M54.5; G89.29 Insomnia G47.00 Epilepsy G40.909
[2024-03-18] MEDS: LACTATED RINGER'S 1,000 ML IV STA (21:49)
[2024-03-18] MEDS ORDERED: ONDANSETRON INJ 2 MG/ML 2 ML VIAL IV PRN (23:01)
[2024-03-19] MEDS: lamoTRIgine 25 MG TAB PO SCH (00:01)
[2024-03-19] MEDS: lamoTRIgine 100 MG TAB PO SCH (00:02)
[2024-03-19] MEDS: GABAPENTIN 400 MG CAP PO SCH (00:02)
[2024-03-19] MEDS: DOXEPIN HCL 50 MG CAPSULE PO SCH (00:02)
[2024-03-19] MEDS: AMPICILLIN/SULBACTAM SOD 3,000 MG in SODIUM CHLOR 0.9% MINI-B 100 ML IV SCH (00:07)
[2024-03-19 07:58] LABS: Basophils # (auto) 0.04 K/uL (0.00-0.20); Basophils % (auto) 0.4 %; Eosinophils # (auto) 0.29 K/uL (0.00-0.50); Eosinophils % (auto) 3.2 %; Hemoglobin 11.7 g/dl (12.0-16.0); Immature Granulocytes # (auto) 0.03 K/uL (0.01-0.20); Immature Granulocytes % (auto) 0.3 %; Lymphocytes # (auto) 2.34 K/uL (1.20-3.40); Lymphocytes % (auto) 25.9 %; Mean Corpuscular Hemoglobin 30.7 pg (25.0-34.0); Mean Corpuscular Hgb Conc 32.5 g/dL (32.0-36.0); Mean Corpuscular Volume 94.5 fL (80.0-100.0); Mean Platelet Volume 10.9 fL (9.4-12.4); Monocytes # (auto) 0.71 K/uL (0.11-0.59); Monocytes % (auto) 7.9 %; Neutrophils # (auto) 5.63 K/uL (1.40-6.50); Neutrophils % (auto) 62.3 %; Platelet Count 241 K/uL (130-400); RDW Standard Deviation 44.8 fL (36.4-46.3); Red Blood Count 3.81 M/uL (4.20-5.40); White Blood Count 9.04 K/ul (4.8-10.8)
[2024-03-19 08:17] LABS: Albumin Level 3.5 gm/dl (3.4-5.0); BUN Creatinine Ratio 11.7 (10-20); Calcium 8.3 mg/dl (8.6-10.3); Est GFR (African American) 117.6 ml/min; Est GFR (Non-African American) 101.4 ml/min; Magnesium 1.7 mg/dl (1.7-2.4); Phosphorus 2.9 mg/dl (2.5-4.9); Potassium 3.6 mmol/L (3.5-5.1)
[2024-03-19] MEDS: BUPRENORPHINE/NALOXONE 8/2 MG TAB SL SCH (10:34)
[2024-03-19] MEDS: PANTOprazole 40 MG in SYRINGE 0 ML IV SCH (10:34)
--- NOTE | 2024-03-19 10:36 | Hospitalist Progress Note ---
Date of Service March 19, 2024 Assessment & Plan (1) Dental abscess: Plan: Presented with right sided facial pain and increased swelling due to a tooth problem week prior to admission, for which she has been taking ibuprofen to help with the pain. - She had been seen in the emergency department on 03/17, was diagnosed with a dental infection, started on Augmentin, however infection continued to worsen. - Soft tissue neck CT on admission revealed prominent right mandibular soft tissue swelling and fat stranding, and dental disease. - Consulted Dr. Mcclain from oral maxillofacial surgery > Plan for I&D, possible extraoral I&D with extraction of teeth #3 and 30 in OR 03/19. Continue Unasyn 3 g IV every 6 hours begun in the ED Acetaminophen 650 mg by mouth every 6 hours as needed for mild pain or fever Toradol 10 mg IV every 6 hours as needed for moderate pain Zofran 4 mg IV every 6 hours as needed Pantoprazole 40 mg IV daily (2) Facial cellulitis: Plan: As above Plan Plan for OR with Dr. Mcclain today, 03/19, for I&D CHRONIC STABLE ISSUES: - Seizure disorder/insomnia/migraine- Continue doxepin, gabapentin, lamotrigine - Chronic pain- Continue buprenorphine-naloxone CODE STATUS: Full code Admission and Anticipated Discharge Date Admission Date: March 18, 2024 Subjective Patient seen and evaluated at bedside. She reports that her right facial swelling is similar to yesterday. She notes that the swelling began 03/17/24 when she noticed a large "lump" near her right cheek. She denies any difficulty breathing or swallowing. Waiting for evaluation by Dr. Mcclain from oral maxillofacial surgery. No additional complaints or concerns at this time. Physical Exam Physical Exam: General: No acute distress, nondiaphoretic, well-developed, well-nourished. HEENT: Acute facial right-sided swelling. Tender gingival tissue. Mucous membranes and oropharynx erythematous. Neck: Swelling around submandibular space on right side. Skin: The skin was without rashes, erythema, edema, or bruising. Cardiac: Regular rate and rhythm without murmurs gallops or rubs. Pulm: Clear to auscultation bilaterally without wheezes, rales or rhonchi. No respiratory distress. Abdominal: Soft, nontender, nondistended. Bowel sounds present. Neuro: A&O x3. No focal neurological deficits. Results & Data Results & Data Vital Signs (Past 12 Hours) Vital Signs Temp Pulse Resp BP Pulse Ox O2 Del Method 03/19/24 07:02 36.7 C 76 16 115/70 93 Room Air 03/18/24 23:00 36.7 C 71 16 121/84 96 Room Air Laboratory Results Reviewed CBC Reviewed chemistries PG Care Time/CCT Total # of Minutes Spent Total Time Spent with Patient: Total time spent is greater than 50% in coordination of care (as documented) at patient's floor/unit and/or counseling patient: Coding Level of Care Code 38127 SUB INP/OBS CARE 2/35MIN Diagnoses Dental abscess K04.7 Facial cellulitis L03.211
[2024-03-19] MEDS: KETOROLAC TROMETHAMINE 15 MG/ML VIAL IV PRN (10:40)
[2024-03-19] MEDS: ACETAMINOPHEN 325 MG TAB PO PRN (12:39)
--- NOTE | 2024-03-19 12:46 | Oral/Maxillofacial Consult ---
Date of Consultation March 19, 2024 History of Present Illness Attending Physician: Jorge Tarango MD History of Present Illness Oral Maxillofacial Surgery Exam Present Complaint: I have pain/swelling/drainage from my infected teeth. Symptoms have been ongoing for a while. Failed out patient antibiotics Right facial infection-subperiosteal and submandibular space Oral Exam: Finding--Acute facial right side swelling, tender gingival tissue with deep pocket formation.Teeth are infected and carious and removal or # 3 and # 30 clinical indicated with I&D BISI Imaging: Soft tissue: All the swelling is in the subperiosteal area and submandibular space. The floor of the mouth, tongue, hard/soft palate, posterior pharyngeal area all with in normal limits, no pathology or abnormal findings noted. Oral Care: Overall oral care is good Occlusion: Class I TMJ exam: No pop, clicking, pain, good ROM, No history of TMJ injury or dysfunction Periodontal exam: Except for the lower right side the overall healthy gingival tissue without evidence of periodontal pathology. Head/Neck exam: Neck is supple, FROM, Able to extend and flex neck w/o difficulty, no masses, no abnormalities, no airway issues. Treatment Plan: Will need I&D possible extraoral I&D with extraction of teeth # 3 and 30 BISI Set up with general anesthesia in hospital due to complexity of the procedure I reviewed the treatment plan and consent with the patient. Understanding was expressed. Time was given for questions regarding the surgery, risks and post op care. Discussed alternative to treatment-NONE I&D needed BISI The following teeth are decayed and fractured and removal is indicated BISI:# 3 and 30 with I&D Risks discussed: Bleeding,Pain,swelling,infection, dry socket, delayed healing, nerve injury to face,lips,tongue,chin area which could be permanent (rare).Scar, drain removal. TMJ, jaw stiffness, change in bite (rare), ear pain (referred). Sinus problems like fistula or infection. Need to leave a small root fragment in place to avoid injury to nerve or sinus. Relationship of wisdom teeth to nerve/sinus and risk of jaw fracture. Surgery to be set up this afternoon in the OR Consent signed NPO Allergies Allergy/AdvReac Type Severity Reaction Status Date / Time diphenhydramine Allergy Severe rash with Verified 03/18/24 20:41 trouble breathing Home Medications Medication Instructions Recorded Confirmed Type levonorgestrel 21 mcg/24 hr (up to 20 mcg intrauterine DAILY 07/23/19 03/18/24 History 8 years) 52 mg intrauterine device (Mirena) buprenorphine 8 mg-naloxone 2 mg 2 tab sublingual DAILY 06/26/20 03/18/24 History sublingual tablet amoxicillin 875 mg-potassium 1 tab PO BID 7 days #14 tabs 03/17/24 03/18/24 Rx clavulanate 125 mg tablet doxepin 50 mg capsule 50 mg PO HS 03/18/24 03/18/24 History gabapentin 400 mg capsule 400 mg PO HS 03/18/24 03/18/24 History ibuprofen 200 mg tablet 200 mg PO Q6H PRN pain/fever 03/18/24 03/18/24 History lamotrigine 150 mg tablet See Rx Instructions .Route .COMPLEX 03/18/24 03/18/24 History (Lamictal) lamotrigine 25 mg tablet See Rx Instructions .Route .COMPLEX 03/18/24 03/18/24 History Patient History Medical History Migraines Back pain Surgical History History of loop electrosurgical excision procedure (LEEP) Uncertain Timing H/O wisdom tooth extraction Family History Grandfather (Maternal) Myocardial infarction Mother Hypertension Daughter Diabetes Sister Diabetes Denies family history of Ovarian cancer Prostate cancer Breast cancer Colorectal cancer Social History Smoking Status: Never smoker Second Hand Exposure: No; Do You Dip or Chew Tobacco: No; Hx Alcohol Use: No Hx Substance Use: No Preferred Language: Macedonian Communication Ability: Effective Visual Impairment: No Limitations Hearing Ability: Normal Business Continuity Coordinator Required: No Beliefs That Will Affect Care: None marital status: Current Living Situation: Spouse current occupational status: employed 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 Feels Safe at Home: Yes Childhood Exposure to Second-Hand Smoke: No caffeine: Yes Dental Care, Regularly: Yes Physical Activity Frequency: 3-4 Times per Week Seatbelt Use: always Sunscreen Use: Yes Assistive Devices: None Results & Data Vital Signs (Past 12 Hours) Vital Signs Temp Pulse Resp BP Pulse Ox O2 Del Method 03/19/24 07:02 36.7 C 76 16 115/70 93 Room Air PG Care Time/CCT Total # of Minutes Spent Total Time Spent with Patient: Total time spent is greater than 50% in coordination of care (as documented) at patient's floor/unit and/or counseling patient: Coding Level of Care Code 74126 IN/OBS CONSULT LVL 2,35M
--- NOTE | 2024-03-19 14:59 | Anesthesiology Consultation ---
Date of Service March 19, 2024 Assessment & Plan (1) Encounter for pre-operative examination: Chart Review Chart Review: Acceptable Risk for Surgery History Surgery Operation Date: 03/19/24 08:20 Proposed Procedures p Right Facial Drainage - Dany R Mcclain, DMD s Extraction #30 and #3 - Dany Mcclain, DMD Height/Weight Height: 5 ft 9 in Weight: 115.6 kg Allergies Allergy/AdvReac Type Severity Reaction Status Date / Time diphenhydramine Allergy Severe rash with Verified 03/18/24 20:41 trouble breathing Medications Home Medications Medication Instructions Recorded Confirmed Last Taken levonorgestrel 21 mcg/24 hr (up to 20 mcg intrauterine DAILY 07/23/19 03/18/24 Unknown 8 years) 52 mg intrauterine device (Mirena) buprenorphine 8 mg-naloxone 2 mg 2 tab sublingual DAILY 06/26/20 03/18/24 03/18/24 sublingual tablet amoxicillin 875 mg-potassium 1 tab PO BID 7 days #14 tabs 03/17/24 03/18/24 03/18/24 clavulanate 125 mg tablet doxepin 50 mg capsule 50 mg PO HS 03/18/24 03/18/24 03/17/24 gabapentin 400 mg capsule 400 mg PO HS 03/18/24 03/18/24 03/17/24 ibuprofen 200 mg tablet 200 mg PO Q6H PRN pain/fever 03/18/24 03/18/24 03/18/24 lamotrigine 150 mg tablet See Rx Instructions .Route .COMPLEX 03/18/24 03/18/24 03/18/24 (Lamictal) lamotrigine 25 mg tablet See Rx Instructions .Route .COMPLEX 03/18/24 03/18/24 03/18/24 Active Medications Generic Name Dose Route Start Last Admin Trade Name Freq PRN Reason Stop Dose Admin Acetaminophen 650 mg 03/18/24 23:01 03/19/24 12:39 Acetaminophen 325 Mg Tab PO 04/17/24 23:00 650 mg Q4H PRN Administration pain/fever Buprenorphine/Naloxone 2 tab 03/19/24 09:00 03/19/24 10:34 Buprenorphine/Naloxone 8/2 Mg Tab SL 04/18/24 08:59 2 tab DAILY LA Administration Doxepin HCl 50 mg 03/18/24 23:01 03/19/24 00:02 Doxepin Hcl 50 Mg Capsule PO 04/17/24 23:00 50 mg HS LA Administration Gabapentin 400 mg 03/18/24 23:01 03/19/24 00:02 Gabapentin 400 Mg Cap PO 04/17/24 23:00 400 mg HS LA Administration Pantoprazole Sodium 40 mg/ 10 mls @ 5 mls/min 03/19/24 11:00 03/19/24 10:34 Syringe IV 04/18/24 10:59 5 mls/min DAILY@1100 LA Administration Ampicillin Sodium/Sulbactam 100 mls @ 100 mls/hr 03/19/24 01:00 03/19/24 13:32 Sodium 3,000 mg/ Sodium IV 03/29/24 00:59 Infused Chloride Q6H LA Infusion Ketorolac Tromethamine 10 mg 03/19/24 02:00 03/19/24 10:40 Ketorolac Tromethamine 15 Mg/Ml Vial IV 03/24/24 01:59 10 mg Q6H PRN Administration Moderate Pain (Scale 4, 5, 6) Lamotrigine 100 mg 03/18/24 23:15 03/19/24 10:33 Lamotrigine 100 Mg Tab PO 04/17/24 23:14 100 mg BID LA Administration Lamotrigine 75 mg 03/18/24 23:15 03/19/24 10:33 Lamotrigine 25 Mg Tab PO 04/17/24 23:14 75 mg BID LA Administration Protocol Past Medical History Medical History (Updated 03/19/24 @ 14:58 by Micah Batista MD) Epilepsy Migraines Back pain Past Family History Family History Grandfather (Maternal) Myocardial infarction Mother Hypertension Daughter Diabetes Sister Diabetes Denies family history of Ovarian cancer Prostate cancer Breast cancer Colorectal cancer Past Surgical History Surgical History History of loop electrosurgical excision procedure (LEEP) Uncertain Timing H/O wisdom tooth extraction Social History Smoking Status: Never smoker Do You Dip or Chew Tobacco: No Hx Alcohol Use: No Alcohol type: wine Hx Substance Use: No Physical Exam Vital Signs Last Vital Signs Temp 36.7 C 03/19/24 14:24 Pulse 76 03/19/24 14:24 Resp 18 03/19/24 14:24 BP 125/77 03/19/24 14:24 Pulse Ox 92 03/19/24 14:24 O2 Del Method Room Air 03/19/24 14:24 Testing Laboratory Results 03/19/24 07:27 03/19/24 07:27
[2024-03-19] MEDS ORDERED: LIDOCAINE 2% 2 ML VIAL/AMP(20MG/ML) INFIL ONE (16:21)
[2024-03-19] MEDS ORDERED: ROCURONIUM BROMIDE 10 MG/ML 5 ML VIAL IV ONE (16:21)
[2024-03-19] MEDS ORDERED: DEXAMETHASONE SOD INJ 4 MG/ML VIAL ONE (16:21)
[2024-03-19] MEDS ORDERED: ONDANSETRON INJ 2 MG/ML 2 ML VIAL ONE (16:21)
[2024-03-19] MEDS ORDERED: PROPOFOL IV EMULSION 10 MG/ML 20 ML VIAL IV ONE (16:21)
[2024-03-19] MEDS ORDERED: MIDAZOLAM HCL 1 MG/ML 2ML VIAL ONE (16:22)
[2024-03-19] MEDS ORDERED: SUGAMMADEX SODIUM 200 MG/2 ML VIAL IV ONE (16:22)
[2024-03-19] MEDS ORDERED: fentaNYL citrate PF 100 MCG/2 ML VIAL ONE (16:22)
--- NOTE | 2024-03-19 16:52 | History & Physical Bridge Note ---
Date of Service March 19, 2024 History & Physical Bridge Note I have examined the patient, reviewed the History & Physical and in the interval since the performance of the History & Physical I have noted the following changes of clinical significance: no changes noted. OK for the planned I and D
[2024-03-19] MEDS ORDERED: fentaNYL citrate PF 100 MCG/2 ML VIAL IV PRN (16:58)
[2024-03-19] MEDS ORDERED: ePHEDrine sulfate 50 MG/ML AMP IV PRN (16:58)
[2024-03-19] MEDS ORDERED: ATROPINE SULFATE 0.1 MG/ML 10ML SYR IV PRN (16:58)
[2024-03-19] MEDS ORDERED: ONDANSETRON INJ 2 MG/ML 2 ML VIAL IV PRN (16:58)
[2024-03-19] MEDS: CHLORHEXIDINE GLUCONATE 0.12% 480 ML MT ONE (17:42)
[2024-03-19] MEDS: BUPIVACAINE/EPINEPHRINE 0.5% 1:200,000 1.8 ML CARP ONE (17:50)
--- NOTE | 2024-03-19 18:02 | Post Operative Brief Note ---
PG Immediate Post Op with CF Date of Surgery March 19, 2024 Pre & Post Diagnosis Operation Date: 03/19/24 08:20 Pre-Op Diagnosis: Facial / Dental Abscess right side Post-Op Diagnosis: Facial / Dental Abscess right side I identified the patient and participated in the time-out.: Yes Procedure Operation Date: 03/19/24 08:20 Actual Procedures p Incision and Drainage of Right Facial Abscess(Right) - Dany Mcclain DMD s Extraction #30 and #3(Right) - Dany Mcclain DMD Surgeon Dany Mcclain DMD Parking Lot Signaler none Estimated Blood Loss 4 Findings Consistent with Post-Op Diagnosis abscess submandibular and vestibule fold Specimens Specimen Description: No specimen per surgeon Drains [place] Drain Anesthesia Type General Complications none Disposition Accompanied Patient To Recovery: Yes
--- NOTE | 2024-03-19 18:59 | Anesthesiology Progress Note ---
Date of Service March 19, 2024 Anesthesia Post Procedure Vital Signs Vital Signs: Temp Pulse Pulse Resp BP BP Pulse Ox 03/19/24 18:46 98.2 F 72 16 135/87 94 03/19/24 18:30 97.9 F 71 14 128/81 98 03/19/24 18:20 68 11 L 128/79 100 03/19/24 18:10 70 10 L 123/78 98 03/19/24 18:02 98.4 F 74 13 130/84 99 03/19/24 16:54 98.8 F 88 18 131/82 100 03/19/24 14:24 98.1 F 76 18 125/77 92 03/19/24 08:30 03/19/24 07:02 98.1 F 76 16 115/70 93 03/18/24 23:00 98.1 F 71 16 121/84 96 03/18/24 20:05 75 18 108/76 97 03/18/24 19:23 72 18 121/75 95 O2 Del Method O2 Flow Rate 03/19/24 18:46 Room Air 03/19/24 18:30 Room Air 03/19/24 18:20 Nasal Cannula 2 03/19/24 18:10 Nasal Cannula 2 03/19/24 18:02 Nasal Cannula 2 03/19/24 16:54 Room Air 03/19/24 14:24 Room Air 03/19/24 08:30 Room Air 03/19/24 07:02 Room Air 03/18/24 23:00 Room Air 03/18/24 20:05 Room Air 03/18/24 19:23 Room Air Pain Intensity Right Face: Pain Intensity: 2 Transfer of Care Handoff Completed per policy Notes Mental Status: alert / awake / arousable and participated in evaluation Patient Amnestic to Procedure: Yes Nausea / Vomiting: adequately controlled Pain: adequately controlled Airway Patency, RR, SpO2: stable & adequate BP & HR: stable & adequate Hydration State: stable & adequate Anesthetic Complications: no major complications apparent and Pt Satisfied with anesthetic care
[2024-03-20 08:31] LABS: Albumin Level 3.8 gm/dl (3.4-5.0); BUN Creatinine Ratio 15.3 (10-20); Calcium 8.9 mg/dl (8.6-10.3); Creatinine Clr Calc Pharmacy 150.8 ml/min; Est GFR (African American) 127.5 ml/min; Magnesium 1.8 mg/dl (1.7-2.4); Phosphorus 3.3 mg/dl (2.5-4.9); Potassium 4.2 mmol/L (3.5-5.1)
[2024-03-20 08:41] LABS: Basophils # (auto) 0.01 K/uL (0.00-0.20); Basophils % (auto) 0.1 %; Hematocrit (blood only) 40.2 % (37.0-47.0); Hemoglobin 13.4 g/dl (12.0-16.0); Immature Granulocytes # (auto) 0.03 K/uL (0.01-0.20); Immature Granulocytes % (auto) 0.3 %; Lymphocytes # (auto) 1.48 K/uL (1.20-3.40); Lymphocytes % (auto) 15.3 %; Mean Corpuscular Hemoglobin 31.2 pg (25.0-34.0); Mean Corpuscular Hgb Conc 33.3 g/dL (32.0-36.0); Mean Corpuscular Volume 93.7 fL (80.0-100.0); Mean Platelet Volume 11.2 fL (9.4-12.4); Monocytes # (auto) 0.25 K/uL (0.11-0.59); Monocytes % (auto) 2.6 %; Neutrophils # (auto) 7.93 K/uL (1.40-6.50); Neutrophils % (auto) 81.7 %; Platelet Count 290 K/uL (130-400); RDW Coefficient of Variation 12.4 % (11.5-14.5); RDW Standard Deviation 42.8 fL (36.4-46.3); Red Blood Count 4.29 M/uL (4.20-5.40)
--- NOTE | 2024-03-20 13:49 | Oral/Maxillofacial Progress Nt ---
Date of Service March 20, 2024 Assessment & Plan Admission and Anticipated Discharge Date Admission Date: March 18, 2024 Subjective Post Op infection evaluation 24 hours The infected area is resolving very well. Swelling is almost gone and the tissue is returning back to normal in size and texture. Still slight drainage is noted, therefore Drain will be removed in my office tomorrow afternoon. Infection is responding very well to the antibiotics, extractions and the I and D. I requested that the patient continue with massage, heat and wound care. At this time the area is responding well to treatment. RTC tomorrow afternoon for drain removal and ongoing care Augmentin already Rx from the first ER visit Results & Data Vital Signs (Past 12 Hours) Vital Signs Temp Pulse Pulse Resp BP Pulse Ox O2 Del Method 03/20/24 12:24 36.4 C L 82 17 139/85 99 Room Air 03/20/24 07:36 36.3 C L 72 16 132/81 96 Room Air 03/20/24 05:35 36.6 C 66 18 128/76 94 Room Air PG Care Time/CCT Total # of Minutes Spent Total Time Spent with Patient: Total time spent is greater than 50% in coordination of care (as documented) at patient's floor/unit and/or counseling patient: Coding Level of Care Code None
--- NOTE | 2024-03-20 14:17 | Operative Report ---
PG Post Operative Report Pre & Post Diagnosis Operation Date: 03/19/24 08:20 Pre-Op Diagnosis: Dental Abscess Post-Op Diagnosis: Dental Abscess I identified the patient and participated in the time-out.: Yes Procedure Operation Date: 03/19/24 08:20 Actual Procedures p Incision and Drainage of Right Facial Abscess(Right) - Dany Mcclain DMD s Extraction #30 and #3(Right) - Dany Mcclain DMD Surgeon Dany Mccalin DMD Safety Coordinator none Estimated Blood Loss 4 Findings Consistent with Post-Op Diagnosis Specimens none Drains Lyly 1/4 Anesthesia Type General Complications none Disposition Accompanied Patient To Recovery: Yes Indications acute facial infection Description of Procedure Actual Procedures p Incision and Drainage right vestibule space and Submandibular Abscess; Removal of Tooth #3 and 30 (Not Applicable) - Dany Mcclain DMD ICD10 K12.2 and K04.7 CPT 82912 [id number] for infected teeth # 3 and 30 Once cleared for surgery general anesthesia was achieved, the eyes were protected by the anesthesia dept criteria. A time out was take for patient ID, antibiotics, equipment and position verification once all agreed the procedure began. Local anesthesia using Marcaine with a vasoconstrictor ( 1.8 ml per site) given into right inferior alveolar nerve and upper right posterior area A throat pack was placed after the oral cavity was irrigated with saline. Once a surgical level of anesthesia was obtained and the local anesthesia was given time for the blocks the surgery was started. I turned my attention to the infection which was located in the right vestibule space and Submandibular Abscess and associated with teeth #3 and 3 Incision and Drainage with [place] drain placement Using a 15 blade an incision was made in the swollen mucobuccal fold right side. Once the incision was made a lot of pus extruded from the site. A curved hemostat was carefully placed into the infected space along the lateral side of the lower jaw and into the submandibular space abscess. Some further drainage was now allowed to escape. I palpated the cheek and submandibular area and no further drainage was expressed. I now placed a 1/4 [place] drain into the inferior aspect of the lower jaw and submandibular area. The drain was secured with a 2-0 chromic. The plan is to remove in 36-48 hours in my office. The area was irrigated with at least 100 ml of NS solution and the drain was functioning very well. I now turned my attention to remove the associated infected teeth # 3 and # 30 Surgical extraction of # 30 The full thick Muco-periosteal flap was made on the facial aspect from the retromolar pad to area # 28. The flap was reflected to expose the the subperiosteal space the bone adjacent to # 30. The rongeur was used to remove bone, the tooth was removed with a 301 elevator and cow horn forceps, the mental nerve was intact, there was a large amount of granulation tissue on the apex and some more pus that was expressed. Surgical extraction of # 3 Th e# 3 tooth was fractured to the gum line with localized swelling. The full thick Muco-periosteal flap was made on the facial aspect from the tuberosity area anterior to site # 4. The flap was reflected to expose the fractured roots. The rongeur was used to remove bone, the fractured roots were removed with a root forceps. Closure was obtained with a few 2-0 chromic sutures. I inspected the sites to insure all bleeding was controlled. I removed the throat pack and suctioned the throat. A gauze pressure dressings was placed. All instrument and sponge count was correct. The patient was allowed to awake from the anesthesia. Once full awake the anesthesia tube was removed and the patient was taken to the recovery room with all vital sign stable. The patient tolerated the surgery very well. I will follow the patient in my office, Rx and instructions will be given upon discharge. I attest to the content of the Intraoperative Record and any orders documented therein. Any exceptions are noted below.
--- NOTE | 2024-03-20 16:21 | Discharge Summary ---
Discharge Summary Date of Service March 20, 2024 Principal Dx & Hospital Course #1 = Principal Diagnosis (1) Dental abscess: Presented with right sided facial pain and increased swelling due to a tooth problem week prior to admission, for which she has been taking ibuprofen to help with the pain. - She had been seen in the emergency department on 03/17, was diagnosed with a dental infection, started on Augmentin, however infection continued to worsen. - Soft tissue neck CT on admission revealed prominent right mandibular soft tissue swelling and fat stranding, and dental disease. - Consulted Dr. Mcclain from oral maxillofacial surgery > Patient incision and drainage of right facial abscess and tooth extraction of #3 (right) and #30 on 03/[address] Mcclain. Tolerated procedure well, no complications. Lyly drain in place. > Follow-up in clinic 03/21 for drain removal. > Continue Augmentin as prescribed on discharge. (2) Facial cellulitis: As above Plan CHRONIC STABLE ISSUES: - Seizure disorder/insomnia/migraine- Continue doxepin, gabapentin, lamotrigine - Chronic pain- Continue buprenorphine-naloxone CODE STATUS: Full code Notes For Next Care Provider Patient had I&D of right facial abscess and teeth #3 and 30 extracted on 03/[address] Mcclain. Tolerated procedure well. No complications. [place] drain in place. Follow-up appointment in clinic on 03/21 for drain removal. Medication Changes From Visit Prescribed Augmentin for right facial abscess and tooth extraction. Admission HPI Per Admitting Provider The patient is a 33-year-old female with a past medical history including chronic low back pain, insomnia, and epilepsy. She presents to the emergency department as noted above. CT scan of the soft tissue of the neck showed a prominent right mandibular soft tissue swelling and fat stranding, with no discrete abscess is identified, and a small amount of fluid along the right platysma. Phone conversation with oral maxillofacial surgery Dr. Mcclain, recommended admission, for possible procedure in the a.m. Admission Exam Per Admitting Provider The patient is awake, alert and oriented 3, well developed and well nourished, normocephalic and atraumatic, lying in bed and in no acute distress. HEENT--PERRL, EOMI, mucous membranes and oropharynx erythema and induration right side Neck--swelling from right mandibular area down to right side of neck anteriorly Heart--normal S1 and S2. No murmurs, rubs or gallops. Lungs--clear bilaterally, no respiratory distress, no accessory muscle use. Abdomen--normal bowel sounds and soft. Nontender. Nondistended Extremities--No edema. Dermatologic--normal except as above Neurologic--cranial nerves II through XII grossly intact. Rheumatologic--normal range of motion. Psychiatric--normal affect. Discharge Exam General: No acute distress, nondiaphoretic, well-developed, well-nourished. HEENT: Acute facial right-sided swelling, very improved. Tissue is returning back to normal size and texture. Lyly drain in place. Neck: Swelling around submandibular space on right side. Skin: The skin was without rashes, erythema, edema, or bruising. Cardiac: Regular rate and rhythm without murmurs gallops or rubs. Pulm: Clear to auscultation bilaterally without wheezes, rales or rhonchi. No respiratory distress. Abdominal: Soft, nontender, nondistended. Bowel sounds present. Neuro: A&O x3. No focal neurological deficits. Updated Medication List Medication Instructions Recorded Confirmed Type levonorgestrel 21 mcg/24 hr (up to 20 mcg intrauterine DAILY 07/23/19 03/18/24 History 8 years) 52 mg intrauterine device (Mirena) buprenorphine 8 mg-naloxone 2 mg 2 tab sublingual DAILY 06/26/20 03/18/24 History sublingual tablet amoxicillin 875 mg-potassium 1 tab PO BID 7 days #14 tabs 03/17/24 03/18/24 Rx clavulanate 125 mg tablet doxepin 50 mg capsule 50 mg PO HS 03/18/24 03/18/24 History gabapentin 400 mg capsule 400 mg PO HS 03/18/24 03/18/24 History ibuprofen 200 mg tablet 200 mg PO Q6H PRN pain/fever 03/18/24 03/18/24 History lamotrigine 150 mg tablet See Rx Instructions .Route .COMPLEX 03/18/24 03/18/24 History (Lamictal) lamotrigine 25 mg tablet See Rx Instructions .Route .COMPLEX 03/18/24 03/18/24 History Hospital Stay Data Consultations 03/18/24 20:35 ED Decision to Admit Stat 03/18/24 21:17 Consult Oromaxillofacial Surgery Routine Procedures Performed Operation Date: 03/19/24 08:20 Actual Procedures p Incision and Drainage of Right Facial Abscess(Right) - Dany Mcclain DMD s Extraction #30 and #3(Right) - Dany Mcclain DMD Diagnostic Imagining Performed Laboratory Results WBC 9.70 K/ul (4.8-10.8) 03/20/24 08:26 RBC 4.29 M/uL (4.20-5.40) 03/20/24 08:26 Hgb 13.4 g/dl (12.0-16.0) 03/20/24 08:26 Hct 40.2 % (37.0-47.0) 03/20/24 08:26 MCV 93.7 fL (80.0-100.0) 03/20/24 08:26 MCH 31.2 pg (25.0-34.0) 03/20/24 08:26 MCHC 33.3 g/dL (32.0-36.0) 03/20/24 08:26 RDW Std Deviation 42.8 fL (36.4-46.3) 03/20/24 08:26 RDW Coeff of [place] 12.4 % (11.5-14.5) 03/20/24 08:26 Plt Count 290 K/uL (130-400) 03/20/24 08:26 MPV 11.2 fL (9.4-12.4) 03/20/24 08:26 Immature Gran % (Auto) 0.3 % 03/20/24 08:26 Neut % (Auto) 81.7 % 03/20/24 08:26 Lymph % (Auto) 15.3 % 03/20/24 08:26 [place] % (Auto) 2.6 % 03/20/24 08:26 Eos % (Auto) 0.0 % 03/20/24 08:26 Baso % (Auto) 0.1 % 03/20/24 08:26 Neut # (Auto) 7.93 K/uL (1.40-6.50) H 03/20/24 08:26 Lymph # (Auto) 1.48 K/uL (1.20-3.40) 03/20/24 08:26 [place] # (Auto) 0.25 K/uL (0.11-0.59) 03/20/24 08:26 Eos # (Auto) 0.00 K/uL (0.00-0.50) 03/20/24 08:26 Baso # (Auto) 0.01 K/uL (0.00-0.20) 03/20/24 08:26 Immature Gran # (Auto) 0.03 K/uL (0.01-0.20) 03/20/24 08:26 Absolute Nucleated RBC Cancelled 03/20/24 07:02 Nucleated RBC % (auto) Cancelled 03/20/24 07:02 Neutrophils % (Manual) Cancelled 03/20/24 07:02 Band Neutrophils % Cancelled 03/20/24 07:02 Lymphocytes % (Manual) Cancelled 03/20/24 07:02 Prolymphocyte % Cancelled 03/20/24 07:02 Reactive Lymphs % (Man) Cancelled 03/20/24 07:02 Monocytes % (Manual) Cancelled 03/20/24 07:02 Eosinophils % (Manual) Cancelled 03/20/24 07:02 Basophils % (Manual) Cancelled 03/20/24 07:02 Metamyelocytes % (Man) Cancelled 03/20/24 07:02 Myelocytes % (Man) Cancelled 03/20/24 07:02 Promyelocytes % (Man) Cancelled 03/20/24 07:02 Blast Cells % (Manual) Cancelled 03/20/24 07:02 Plasma Cell % (Manual) Cancelled 03/20/24 07:02 Other Cells % Cancelled 03/20/24 07:02 Nucleated RBC % Cancelled 03/20/24 07:02 Neutrophils # (Manual) Cancelled 03/20/24 07:02 Band Neutrophils # Cancelled 03/20/24 07:02 Total Absolute Neuts Cancelled 03/20/24 07:02 Lymphocytes # (Manual) Cancelled 03/20/24 07:02 Prolymphocyte # Cancelled 03/20/24 07:02 Reactive Lymphs # Cancelled 03/20/24 07:02 Total Abs Lymphocytes Cancelled 03/20/24 07:02 Monocytes # (Manual) Cancelled 03/20/24 07:02 Eosinophils # (Manual) Cancelled 03/20/24 07:02 Basophils # (Manual) Cancelled 03/20/24 07:02 Metamyelocytes # (Man) Cancelled 03/20/24 07:02 Myelocytes # (Manual) Cancelled 03/20/24 07:02 Promyelocytes # (Man) Cancelled 03/20/24 07:02 Blast Cells # (Man) Cancelled 03/20/24 07:02 Plasma Cell # (Manual) Cancelled 03/20/24 07:02 Other Cells # Cancelled 03/20/24 07:02 Nucleated RBCs # (Man) Cancelled 03/20/24 07:02 Hypersegmented Neuts Cancelled 03/20/24 07:02 Hyposegmented Neuts Cancelled 03/20/24 07:02 Hypogranular Neuts Cancelled 03/20/24 07:02 Large Granular Lymphs Cancelled 03/20/24 07:02 # Lrg Granular Lymphs Cancelled 03/20/24 07:02 Hairy Cells Cancelled 03/20/24 07:02 Smudge Cells Cancelled 03/20/24 07:02 Toxic Granulation Cancelled 03/20/24 07:02 Toxic Vacuolation Cancelled 03/20/24 07:02 Dohle Bodies Cancelled 03/20/24 07:02 Mando Rods Cancelled 03/20/24 07:02 Platelet Estimate Cancelled 03/20/24 07:02 Hypogranular Platelets Cancelled 03/20/24 07:02 Giant Platelets Cancelled 03/20/24 07:02 Platelet Satelliting Cancelled 03/20/24 07:02 RBC Morphology Cancelled 03/20/24 07:02 Polychromasia Cancelled 03/20/24 07:02 Hypochromasia Cancelled 03/20/24 07:02 Poikilocytosis Cancelled 03/20/24 07:02 Basophilic Stippling Cancelled 03/20/24 07:02 Anisocytosis Cancelled 03/20/24 07:02 Microcytosis Cancelled 03/20/24 07:02 Macrocytosis Cancelled 03/20/24 07:02 Spherocytes Cancelled 03/20/24 07:02 Pappenheimer Bodies Cancelled 03/20/24 07:02 Sickle Cells Cancelled 03/20/24 07:02 Target Cells Cancelled 03/20/24 07:02 Tear Drop Cells Cancelled 03/20/24 07:02 Ovalocytes Cancelled 03/20/24 07:02 Stomatocytes Cancelled 03/20/24 07:02 [place] Bodies Cancelled 03/20/24 07:02 Echinocytes Cancelled 03/20/24 07:02 Acanthocytes (Spur) Cancelled 03/20/24 07:02 Rouleaux Cancelled 03/20/24 07:02 RBC Agglutinates Cancelled 03/20/24 07:02 Schistocytes Cancelled 03/20/24 07:02 Sezary Cell Cancelled 03/20/24 07:02 Sodium 137 mmol/L (136-145) 03/20/24 07:02 Potassium 4.2 mmol/L (3.5-5.1) 03/20/24 07:02 Chloride 104 mmol/L (98-107) 03/20/24 07:02 Carbon Dioxide 24 mmol/L (21-32) 03/20/24 07:02 Anion Gap 9 (3-11) 03/20/24 07:02 BUN 11 mg/dl (6-23) 03/20/24 07:02 Creatinine 0.72 mg/dl (0.6-1.2) 03/20/24 07:02 Est Cr Clr Drug Dosing 150.8 ml/min 03/20/24 07:02 Est GFR ( Amer) 127.5 ml/min 03/20/24 07:02 Est GFR (Non-Af Amer) 110.0 ml/min 03/20/24 07:02 BUN/Creatinine Ratio 15.3 (10-20) 03/20/24 07:02 Glucose 98 mg/dl (70-99(Fasting)) 03/20/24 07:02 Calcium 8.9 mg/dl (8.6-10.3) 03/20/24 07:02 Phosphorus 3.3 mg/dl (2.5-4.9) 03/20/24 07:02 Magnesium 1.8 mg/dl (1.7-2.4) 03/20/24 07:02 Albumin 3.8 gm/dl (3.4-5.0) 03/20/24 07:02 HCG, Qual Negative (Negative) 03/18/24 18:15 Blood Parasites ID Cancelled 03/20/24 07:02 Impressions Soft Tissue Neck CT 03/18/24 17:49 Exam(s): CT NECK With Contrast IV Amt: 92 cc opti 320 EXAM: CT Neck With Intravenous Contrast CLINICAL HISTORY: Reason for exam: Right sided dental pain and facial swelling. TECHNIQUE: Axial computed tomography images of the neck with intravenous contrast. CTDI is 20.64 mGy and DLP is 610.59 mGy-cm. Automated exposure control was utilized for the study. A dose lowering technique was utilized adhering to the principles of ALARA. CONTRAST: Patient received 92 cc opti 320 of IV contrast COMPARISON: None FINDINGS: Oropharynx: Unremarkable. No significant tonsillar enlargement. No peritonsillar abscess. Hypopharynx: Unremarkable. Larynx: Unremarkable. Normal epiglottis. Trachea: Unremarkable. Retropharyngeal space: Unremarkable. Submandibular/parotid glands: Unremarkable. Glands are normal in size. Thyroid: Heterogeneous thyroid could be further evaluated with ultrasound if clinically indicated. Bones/joints: No acute fracture. Soft tissues: Prominent right mandibular soft tissue swelling and fat stranding. No discrete abscess identified. Small amount of fluid along the right platysma. Vasculature: No acute findings. Lymph nodes: Enlarged right cervical, submandibular, and submental lymph nodes may be reactive. Dental: Dental disease, most prominently involving the right first mandibular molar and right first maxillary molar. Lung apices: Unremarkable as visualized. IMPRESSION: 1. Prominent right mandibular soft tissue swelling and fat stranding. No discrete abscess identified. Small amount of fluid along the right platysma. 2. Dental disease. Electronically signed by: Diego Zambrano M.D. 03/18/24 19:39 PM Pending Results Patient Have Any Pending Studies at Discharge: No Discharge Instructions Given to Patient (Per Discharging Provider) ADDITIONAL ACTIVITY RECOMMENDATIONS: * [place] teeth after every meal. It is very important to keep your mouth clean to prevent infection. * Starting tonight rinse with the Peridex as directed then 2 x a day * it is very important to keep well hydrated, this prevents fever and possible dry socket pain SPECIAL CARE INSTRUCTIONS: *It is not uncommon that between day 2-4 that your swelling will be at its worst this is very normal, do not be alarmed. * Please apply heat (hot water bottle or heating pad) for the next two days, as often as possible. * Tomorrow start rinsing your mouth with 1/2 teaspoon salt in 8 ounces warm water. This rinse should be used every 4-6 hours. * Return to the office for a follow up check up on: MondayMARCH 21 at 9:30 am for drain removal * office address--[address]. phone # [phone] Total Time Total Time Spent Total Time Spent (In Minutes): Greater than 30 minutes spent completing this discharge process including direct patient care, medication reconciliation, documentation, review of labs and images, and coordination of care. Coding Level of Care Code 46032 INP/OBS DISCH >30 MIN Diagnoses Dental abscess K04.7 Facial cellulitis L03.211
== END 2024-03-20 15:19 | disposition home or self-care (01) ==
LOC: ED 17:27 → 3W 17:27 → SUATTDRO 21:15 → 3W 22:57